=== PATIENT | male | born 1985 | race Caucasian/White ===

== ENCOUNTER → 2018-03-26 20:41 | Outpatient (REF) | payer BC, SELFPAY ==
[2018-03-26 21:12] LABS: Bilirubin Negative (Negative); Blood Negative (Negative); Clarity Clear; Glucose Negative (Negative); Ketones Negative (Negative); Leukocyte Esterase Negative (Negative); Nitrite Negative (Negative); Specific Gravity <= 1.005 (1.005-1.025); Urobilinogen 0.2 EU/dL (Up TO 0.2)
== END ==
LOC: LBN 20:41
PROVIDERS: PCP Emergency Medicine; Visit Provider Emergency Medicine
DX: R31.29 Other microscopic hematuria (principal)
CPT/HCPCS: 81003